=== PATIENT | male | born 1975 | race Caucasian/White ===

== ENCOUNTER 2021-12-11 10:26 | Outpatient (REF) | payer OTHER, SELFPAY ==
[2021-12-11 10:53] LABS: COVID-19 Test Negative (Negative)
== END 2021-12-11 10:27 | disposition home or self-care (01) ==
LOC: HO.LAB 10:26
PROVIDERS: Visit Provider Internal Medicine
DX: Z20.822 Contact with and (suspected) exposure to COVID-19 (principal)
CPT/HCPCS: 87635; C9803